=== PATIENT | male | born 1965 | race Caucasian/White ===

== ENCOUNTER 2016-09-22 21:59 | Emergency (ER) | payer BC ==
[~2016-09-22 21:59] MED LIST: ACETAMINOPHEN; AZO STANDARD97.5 MG; BACTRIM DS TABL1 TA1 PO; FIORICET-COD 51 EACH PO; HYDROCODON-ACE1 EAC5 PO; LISINOPRIL; LOTENSIN20 MG PO; MOTRIN600 M1 PO; NEXIUM PO; NORVASC10 MG PO; PRILOSEC20 MG PO; PRINIVIL10 MG PO; PRINIVIL20 M1 PO; REFLUX MED; ZITHROMAX PO
== END 2016-09-22 22:43 | disposition home or self-care (01) ==
LOC: SED 21:59
DX: S86.112A Strain of other muscle(s) and tendon(s) of posterior muscle group at lower leg level, left leg, initial encounter (principal); K21.9 Gastro-esophageal reflux disease without esophagitis; I10 Essential (primary) hypertension; Z88.8 Allergy status to other drugs, medicaments and biological substances; X58.XXXA Exposure to other specified factors, initial encounter; Y92.89 Other specified places as the place of occurrence of the external cause
CPT/HCPCS: 29530; 99283